=== PATIENT | female | born 1980 | race Caucasian/White ===

== ENCOUNTER 2020-11-20 09:23 | Outpatient (CLI) | payer OTHER, SELFPAY ==
[2020-11-20 10:42] LABS: Basophils # 0.1 10^3/uL (0.0-0.1); Basophils % 0.8 %; Eosinophils # 0.4 10^3/uL (0.0-0.8); Eosinophils % 6.6 %; Hematocrit 42.4 % (37.0-47.0); Hemoglobin 13.7 g/dL (11.5-15.3); Lymphocytes # 2.4 10^3/uL (0.8-4.8); Lymphocytes % 37.3 %; Mean Corpuscular HGB Conc 32.3 g/dL (30.0-36.0); Mean Corpuscular Hemoglobin 29.9 pg (28.0-34.0); Mean Corpuscular Volume 92.6 fL (81-99); Mean Platelet Volume 10.3 fL (7.4-10.4); Monocytes # 0.3 10^3/uL (0.2-0.9); Monocytes % 4.6 %; Neutrophils # 3.21 10^3/uL (1.8-7.7); Neutrophils % 50.5 %; Nucleated Red Blood Cells % 0 %; Platelet Count 247 10^3/cmm (130-400); Red Blood Count 4.58 10^6/uL (4.1-5.3); Red Cell Distribution Width 13.9 % (12.1-15.1); White Blood Count 6.4 10^3/uL (4.0-10.0)
[2020-11-20 10:58] LABS: C Reactive Protein 12.7 mg/L (0.0-4.9)
[2020-11-20 11:17] LABS: Erythrocyte Sedimentation Rate 16 mm/hr (0-15)
[2020-11-21 15:52] LABS: Anti-Nuclear Antibody Screen NEGATIVE (NEGATIVE)
[2020-11-21 17:33] LABS: Alternaria Alternata (M6) Ige 1.29 kU/L; Alternaria Class 2; Bermuda Class 3; Bermuda Grass (G2) Ige 6.26 kU/L; Cat Dander (E1) Ige 0.32 kU/L; Cat Dander Class 0/1; Common Ragweed (Short) (W1) Ig 3.78 kU/L; D. Farinae Class 2; Dermatophagoides Class 2; Dermatophagoides Farinae (D2) 1.17 kU/L; Dermatophagoides Pteronyssinus 1.11 kU/L; Dog Dander (E5) Ige 0.47 kU/L; Dog Dander Class 1; Elm (T8) Ige 1.48 kU/L; Elm Class 2; English Plantain (W9) Ige 0.49 kU/L; English Plantain Class 1; House Dust (Greer) (H1) Ige 0.27 kU/L; House Dust (Hollister- Stier) 0.43 kU/L; House Dust Class 0/1; House Dust Class 1; Immunoglobulin E 505 kU/L (<OR=114); Immunoglobulin E 541 kU/L (<OR=114); Johnson Grass (G10) Ige 9.07 kU/L; Johnson Grass Cl 3; June Grass Class 4; Lamb'S Quarters (Goose Foot) 1.58 kU/L; Lamb'S Quarters Class 2; Maple (Box Elder) (T1) Ige 0.33 kU/L; Maple Class 0/1; Meadow Fescue Class 4; Mucor Racemosus Class 0; Oak (T7) Ige 0.25 kU/L; Oak Class 0/1; Penicillium Class 0; Penicillium Notatum (M1) Ige <0.10 kU/L; Perennial Rye Grass Class 4; Ragweeed Class 3; Rough Marsh Elder (W16) Ige 0.71 kU/L; Rough Marsh Elder Class 2; Sweet Vernal Class 4; Timothy Grass Class 4
[2020-11-27 09:22] LABS: Aspergillus Fumigatus, Igg Ab, 23.2 mg/L (<=102)
== END 2020-11-20 09:24 | disposition home or self-care (01) ==
LOC: LAB 09:28
PROVIDERS: PCP Family Medicine; Visit Provider Internal Medicine Critical Care Medicine
DX: J45.909 Unspecified asthma, uncomplicated (principal); R06.02 Shortness of breath; R05 Cough
CPT/HCPCS: 36415; 82785; 85025; 85651; 86003; 86038; 86140

== ENCOUNTER → 2020-12-05 15:04 | Outpatient (BNVA) | payer OTHER, SELFPAY | PROVIDERS: PCP Family Medicine; Visit Provider Internal Medicine Critical Care Medicine | DX: R05 Cough (principal); Z01.812 Encounter for preprocedural laboratory examination; Z20.822 Contact with and (suspected) exposure to COVID-19 | CPT/HCPCS: 87635 ==

== ENCOUNTER 2020-12-10 13:28 | Outpatient (CLI) | payer OTHER, SELFPAY ==
--- NOTE | 2020-12-10 14:16 | PFTS_ITS ---
Date of Study:12/10/20 Date of Dictation: 12/18/20 MECHANICS: Post bronchodilator vital capacity (FVC) is normal 97%. Post bronchodilator Forced expiratory volume in one second (FEV1) is normal 91%. FEV1/FVC is reduced. No significant response to bronchodilators FLOW VOLUME LOOP: Flattening of inspiratory limb suggestive of extrathoracic obstruction LUNG VOLUMES: RV normal 104%. TLC normal 99% DIFFUSING CAPACITY FOR CARBON MONOXIDE: Normal gas transfer . INTERPRETATION: The spirometry showed mild obstruction with no significant response to bronchodilators. Lung volumes are normal. Normal gas transfer. Flattening of inspiratory limb suggestive of extrathoracic obstruction. Please correlate clinically MTDD
== END 2020-12-10 13:29 | disposition home or self-care (01) ==
LOC: RT 13:30
PROVIDERS: PCP Family Medicine; Visit Provider Internal Medicine Critical Care Medicine
DX: J45.909 Unspecified asthma, uncomplicated (principal)
CPT/HCPCS: 94060; 94726; 94729; J7611

== ENCOUNTER → 2023-01-11 10:12 | Outpatient (BNVA) | payer OTHER, SELFPAY | PROVIDERS: PCP Family Medicine; Visit Provider Family Medicine | DX: N39.0 Urinary tract infection, site not specified (principal) | CPT/HCPCS: 81003 ==

== ENCOUNTER → 2023-08-02 08:33 | Outpatient (BNVA) | payer SELFPAY | PROVIDERS: PCP Family Medicine; Visit Provider Dermatology | DX: Z01.89 Encounter for other specified special examinations (principal) ==

== ENCOUNTER → 2023-09-07 08:23 | Outpatient (BNVA) | payer OTHER, SELFPAY | PROVIDERS: PCP Family Medicine; Visit Provider Family Medicine | DX: E03.8 Other specified hypothyroidism (principal); E03.9 Hypothyroidism, unspecified | CPT/HCPCS: 84443 ==

== ENCOUNTER → 2024-06-12 08:55 | Outpatient (BNVA) | payer OTHER, SELFPAY | PROVIDERS: PCP Family Medicine; Visit Provider Family Medicine | DX: N39.0 Urinary tract infection, site not specified (principal) | CPT/HCPCS: 81000 ==

== ENCOUNTER → 2024-06-18 08:34 | Outpatient (BNVA) | payer OTHER, SELFPAY | PROVIDERS: PCP Family Medicine; Visit Provider Family Medicine | DX: N39.0 Urinary tract infection, site not specified (principal) | CPT/HCPCS: 81000 ==